=== PATIENT | female | born 1950 | race Caucasian/White ===

== ENCOUNTER 2024-09-27 23:54 | Emergency (ER) | payer OTHER ==
[~2024-09-27] VITALS: Ht 160 cm; Wt 64.0 kg
[2024-09-27 23:57] VITALS: TEMP 36.8; O2SAT 99
[2024-09-28] MEDS: ACETAMINOPHEN 325MG TABLET PO ONE (00:34)
[2024-09-28 02:21] VITALS: BP 150/70; PULSE 65; RESP 18; O2SAT 98
== END 2024-09-28 02:24 | disposition home or self-care (01) ==
LOC: ER 23:54
DX: S09.8XXA Other specified injuries of head, initial encounter (principal); I67.82 Cerebral ischemia; M81.0 Age-related osteoporosis without current pathological fracture; Z88.5 Allergy status to narcotic agent; W10.9XXA Fall (on) (from) unspecified stairs and steps, initial encounter; Y93.89 Activity, other specified; Y92.89 Other specified places as the place of occurrence of the external cause; Y99.8 Other external cause status
CPT/HCPCS: 99284